=== PATIENT | male | born 1955 | race African-American/Black ===

== ENCOUNTER 2018-04-18 06:30 | Observation (INO) | payer BC ==
[2018-04-16 17:37] LABS: ANION GAP 13.9 mmol/L (8-16); CALCIUM 10.1 mg/dL (8.4-10.2); CREATININE, SERUM 1.72 mg/dL (0.72-1.25); POTASSIUM 3.9 mmol/L (3.5-5.1)
[~2018-04-18] VITALS: Ht 185.4 cm; Wt 130.6 kg
[2018-04-18] MEDS ORDERED: JANUMET 50-1,01 EACH PO (07:56)
[2018-04-18] MEDS ORDERED: METOPROLOL SUCC50 MG PO (07:57)
[2018-04-18] MEDS ORDERED: GABAPENTIN100 MG PO (07:57)
[2018-04-18] MEDS ORDERED: FUROSEMIDE40 MG PO (07:58)
[2018-04-18] MEDS ORDERED: JARDIANCE PO (07:58)
[2018-04-18] MEDS ORDERED: PROCARDIA XL30 MG PO (07:59)
[2018-04-18] MEDS ORDERED: AMLODIPINE-ATO1 EAC6 PO (08:00)
[2018-04-18] MEDS ORDERED: SIMVASTATIN40 MG PO (08:00)
[2018-04-18] MEDS ORDERED: BACITRACIN 50,000 UNIT VIAL ONE (08:11)
[2018-04-18 08:29] LABS: BASOPHILS # (AUTO) 0.1 (0.0-0.1); BASOPHILS % 0.9 % (0.0-1.0); EOSINOPHILS # (AUTO) 0.2 (0.0-0.4); EOSINOPHILS % 3.9 % (0.0-6.0); HEMATOCRIT 41.4 % (38.2-49.6); LYMPHOCYTES # (AUTO) 1.9 (1.0-3.2); LYMPHOCYTES % 35.9 % (18.0-39.1); MEAN CORPUSCULAR HEMOGLOBIN 32.7 pg (28-32); MEAN CORPUSCULAR HGB CONC 33.8 g/dL (31-35); MEAN CORPUSCULAR VOLUME 96.7 fL (81-99); MONOCYTES # (AUTO) 0.4 (0.2-0.8); NEUTROPHILS # (AUTO) 2.8 (2.1-6.9); NEUTROPHILS % 51.1 % (38.7-80.0); PLATELET COUNT 189 x10e3/uL (140-360); RED BLOOD COUNT 4.28 x10e6/uL (4.3-5.7); RED CELL DISTRIBUTION WIDTH 13.2 % (11.7-14.4)
[2018-04-18] MEDS ORDERED: CEFTRIAXONE SOD 1 GM VIAL ONE (08:29)
--- NOTE | 2018-04-18 08:45 | Diagnostic Imaging Report ---
PROCEDURE: Frontal and lateral views of the chest. COMPARISON: None. INDICATIONS: PREOPERATIVE CHEST XRAY FOR BLADDER SURGERY FINDINGS: Lines/tubes: None. Lungs: The lungs are well inflated and clear. There is no evidence of pneumonia or pulmonary edema. Pleura: There is no pleural effusion or pneumothorax. Heart and mediastinum: The heart and the mediastinum are normal. Bones: No acute bony abnormality. IMPRESSION: No acute cardiopulmonary disease. Dictated by: NATO BURTON M.D. on 04/18/2018 at 8:50 Electronically approved by: NATO BURTON M.D. on 04/18/2018 at 8:50
[2018-04-18] MEDS ORDERED: BUPIVACAINE 0.5%/EPI 30 ML SDV INJ ONE (10:19)
[2018-04-18] MEDS ORDERED: FENTANYL CITRATE/PF 100MCG/2 ML INJ ONE ×2 (11:21→18:26)
[2018-04-18] MEDS ORDERED: ONDANSETRON HCL INJ 2 MG/ML VIAL ONE ×2 (11:32→17:27)
[2018-04-18] MEDS ORDERED: MORPHINE SULFATE 2 MG/ML SYR ONE ×2 (11:37→12:25)
[2018-04-18 13:32] VITALS: BP 151/85
[2018-04-18] MEDS ORDERED: ACETAMINOPHEN/CODEINE 300MG - 30MG TAB PO PRN ×3 (13:45→14:15)
[2018-04-18 14:00] VITALS: BP 151/85
[2018-04-18] MEDS: ACETAMINOPHEN/CODEINE 300MG - 30MG TAB PO PRN ×2 (14:31→21:20)
[2018-04-18 15:57] VITALS: BP 151/85
[2018-04-18 16:01] VITALS: BP 118/69
[2018-04-18] MEDS: NIFEDIPINE CR 30 MG TAB PO SCH (17:00)
[2018-04-18] MEDS ORDERED: NON-FORMULARY MEDICATION (Sitagliptin Phos/Metformin Hcl (Janumet 50-1,000 Mg Tablet) 1 TA PO SCH (17:00)
[2018-04-18] MEDS: METFORMIN HCL 500 MG TAB PO SCH (17:06)
[2018-04-18] MEDS: SITAGLIPTIN 100 MG TAB PO SCH (17:06)
[2018-04-18] MEDS ORDERED: PROPOFOL IV EMULSION 10 MG/ML 20 ML VIAL ONE (17:27)
[2018-04-18] MEDS ORDERED: LIDOCAINE HCL 2% LOCAL INJ 5 ML SDV VIAL INJ ONE (17:27)
[2018-04-18] MEDS ORDERED: SEVOFLURANE INHAL SOLN 250 ML PEN BTL ONE (17:27)
[2018-04-18] MEDS ORDERED: ACETAMINOPHEN 1000 MG/100 ML IV ONE (17:27)
[2018-04-18] MEDS ORDERED: DEXAMETHASONE SOD PHOS INJ 4 MG/ML VIAL ONE (17:27)
[2018-04-18] MEDS ORDERED: MIDAZOLAM HCL 2 MG/2 ML VIAL ONE (18:26)
[2018-04-18 20:00] VITALS: BP 112/72
[2018-04-18] MEDS ORDERED: SIMVASTATIN 40 MG TAB PO SCH (21:00)
[2018-04-19 00:17] VITALS: BP 121/76
[2018-04-19 05:44] VITALS: BP 130/74
[2018-04-19 08:38] VITALS: BP 131/79
[2018-04-19] MEDS: SITAGLIPTIN 100 MG TAB PO SCH (08:44)
[2018-04-19] MEDS: METFORMIN HCL 500 MG TAB PO SCH (08:44)
[2018-04-19] MEDS: NIFEDIPINE CR 30 MG TAB PO SCH (08:45)
[2018-04-19] MEDS ORDERED: METOPROLOL SUCCINATE 50 MG TAB XL PO SCH (09:00)
[2018-04-19] MEDS ORDERED: AMLODIPINE BESYLATE 10 MG TAB PO SCH (09:00)
[2018-04-19] MEDS ORDERED: FUROSEMIDE 40 MG TAB PO SCH (09:00)
[2018-04-19] MEDS ORDERED: ATORVASTATIN PO SCH (09:00)
[2018-04-19] MEDS ORDERED: ATORVASTATIN 40 MG TAB PO SCH (09:00)
[2018-04-19] MEDS ORDERED: JARDIANCE 25 MG PO SCH (09:00)
[2018-04-19] MEDS ORDERED: GABAPENTIN 100 MG CAP PO SCH (09:00)
[2018-04-19] MEDS ORDERED: AMLODIPINE PO SCH (09:00)
[2018-04-19 10:16] VITALS: BP 131/79
[2018-04-19 12:13] VITALS: BP 132/78
--- NOTE | 2018-04-28 22:24 | Operative Report ---
DATE OF PROCEDURE: April 18, 2018 PREOPERATIVE DIAGNOSIS: Post prostatectomy incontinence. POSTOPERATIVE DIAGNOSIS: Post prostatectomy incontinence. OPERATIVE PROCEDURE PERFORMED: Placement of artificial urinary sphincter. ANESTHESIA: General anesthesia. ESTIMATED BLOOD LOSS: Minimal. INDICATIONS: Mr. Bishop Miller is a 62-year-old gentleman who is now several years status post radical retropubic prostatectomy done robotically who has post prostatectomy incontinence. He now presents for definitive surgical management of this problem. PROCEDURE IN DETAIL: The patient was brought into the operating room and placed in supine position, and after administration of general anesthesia, was placed in dorsal lithotomy position, and prepped and draped in usual sterile fashion. A vertical incision was made in the midline of the perineum and dissection was carried out in and around the bulbar urethra. A Richards catheter was placed prior to the incision being made. The bulbospongiosus muscle was ultimately encountered and carefully dissected from its surrounding structures. This was then entered and the bulbar urethra was circumferentially freed up and measured. It measured about 4.75 cm, and a decision was made to leave a 5-cm cuff. This was placed in the standard fashion so that the tubing was on the patient's right hand side. The urethra was then filled with saline containing antibiotic solution and no obvious leak was noted. A small subdartos pocket was placed in the right hemiscrotum, and this was made from a separate incision in the right groin. The layers of the abdomen were entered, and a horizontal incision was made across the rectus fascia. The subrectus pouch was then created and the reservoir was placed in this location. The tubing was allowed to exit through a separate stab incision. The reservoir was filled with approximately 25 mL of fluid. The pump was then placed in the previously created subdartos pocket in the right hemiscrotum. This was placed in inferior most position in the scrotum. All the tubes were then connected by a quick-connect in the right groin. The device was cycled and seemed to work adequately. The device was then locked in a partially closed manner. All the wounds were copiously irrigated and closed in layers using running Monocryl sutures. The skin was also closed using a Monocryl subcuticular stitch. The right groin incision was also closed in layers, the skin being closed with a Monocryl subcuticular stitch. Both wounds were then cleaned and dried and covered with Steri-Strips and Tegaderm dressings. Patient was returned to supine position and anesthesia was reversed. He was transferred to bed and taken to the postanesthesia care unit in good condition. Of note, the needle and instrument counts were correct at the conclusion of the case. Job#: [id number] DR BENNETT
== END 2018-04-19 14:11 | disposition home or self-care (01) ==
LOC: OR 06:30 → RAD HOLD 12:41 → PACU V 12:41 → UNDOADMOB 12:41 → IMCU 13:29
PROVIDERS: ADMIT Urology; ATTEND Urology
DX: N39.3 Stress incontinence (female) (male) (principal); Z85.46 Personal history of malignant neoplasm of prostate; Z88.0 Allergy status to penicillin; E11.9 Type 2 diabetes mellitus without complications; K21.9 Gastro-esophageal reflux disease without esophagitis; N18.9 Chronic kidney disease, unspecified; Z83.3 Family history of diabetes mellitus; Z82.49 Family history of ischemic heart disease and other diseases of the circulatory system; Z01.810 Encounter for preprocedural cardiovascular examination; Z01.812 Encounter for preprocedural laboratory examination; Z01.811 Encounter for preprocedural respiratory examination
CPT/HCPCS: 36415 ×3; 53445; 71046; 80048; 82948 ×2; 85025; 93005; C1815 ×3; G0378 ×2; J0696; J1100; J2001; J2250; J2270; J2405